=== PATIENT | male | born 1995 | race African-American/Black ===

== ENCOUNTER 2016-10-23 11:14 | Emergency (ER) | payer OTHER, SELFPAY ==
[~2016-10-23] VITALS: Ht 182.9 cm; Wt 113.4 kg
[2016-10-23 11:15] VITALS: BP 121/66
[2016-10-23] MEDS ORDERED: ALBU17IN INH (11:26)
[2016-10-23] MEDS ORDERED: ZOFR4TAB3 PO (12:57)
[2016-10-23] MEDS: ONDANSETRON 4 MG ORAL DISINTEGRATING TAB (S0181) PO ONE (13:07)
== END 2016-10-23 13:15 | disposition home or self-care (01) ==
LOC: M ED 12:31
DX: R11.2 Nausea with vomiting, unspecified (principal); R19.7 Diarrhea, unspecified

== ENCOUNTER 2016-12-19 08:02 | Emergency (ER) | payer OTHER, SELFPAY ==
[~2016-12-19] VITALS: Ht 182.9 cm; Wt 113.4 kg
[~2016-12-19 08:02] MED LIST: ALBU17IN INH; ZOFR4TAB3 PO
[2016-12-19 08:06] VITALS: BP 123/76
[2016-12-19] MEDS ORDERED: GENT3OPD OU (08:38)
[2016-12-19] MEDS ORDERED: GENTAMICIN 0.3% OPHTH SOL 5 ML BTL OU ONE (08:45)
== END 2016-12-19 08:47 | disposition home or self-care (01) ==
LOC: M ED 08:17
DX: H10.33 Unspecified acute conjunctivitis, bilateral (principal); J45.909 Unspecified asthma, uncomplicated; Z79.899 Other long term (current) drug therapy